=== PATIENT | male | born 1950 | race Caucasian/White ===

== ENCOUNTER 2023-09-30 09:10 | Emergency (ER) | payer MEDICARE, BC ==
[2023-09-30 09:19] LABS: BASOPHILS ABSOLUTE AUTO 0.03 K/uL (0.00-0.20); BASOPHILS PERCENT AUTO 0.4 % (0.0-2.0); EOSINOPHILS ABSOLUTE AUTO 0.13 K/uL (0.00-0.50); EOSINOPHILS PERCENT AUTO 1.6 % (0.0-5.0); HEMATOCRIT 47.4 % (39.0-49.0); HEMOGLOBIN 15.9 g/dL (13.1-16.8); LYMPHOCYTES PERCENT AUTO 27.7 % (10.0-50.0); MEAN CORPUSCULAR HEMOGLOBIN 29.6 pg (28.2-33.3); MEAN CORPUSCULAR HGB CONC 33.5 g/dL (31.7-36.0); MEAN CORPUSCULAR VOLUME 88.3 fL (84.0-98.0); MONOCYTES ABSOLUTE AUTO 0.88 K/uL (0.00-1.00); MONOCYTES PERCENT AUTO 10.6 % (2.0-14.0); NEUTROPHILS ABSOLUTE AUTO 4.97 K/uL (1.40-7.00); NEUTROPHILS PERCENT AUTO 59.7 % (45.0-80.0); PLATELET COUNT,PLT 207 K/uL (150-350); RED BLOOD CELL COUNT 5.37 M/uL (4.33-5.41); RED CELL DISTRIBUTION WIDTH 13.8 % (11.2-14.1); WHITE BLOOD CELL COUNT,WBC 8.3 K/uL (4.0-10.2)
[2023-09-30] MEDS: Lidocaine 2% Viscous Solution 15 ML UD PO ONE (09:25)
[2023-09-30] MEDS: Aspirin 81 MG Tab.Chew PO ONE (09:26)
[2023-09-30] MEDS: Aluminum Hydroxide/Magnesium Hydroxide/Simethicone Susp 30 ML Cup PO ONE (09:27)
[2023-09-30] MEDS: Sodium Chloride 0.9% 10 ML Syringe FLUSH PRN (09:27)
[2023-09-30] MEDS: Ondansetron 4 MG/2 ML SDV IVPUSH ONE (09:27)
[2023-09-30] MEDS: Calcium Carbonate 500 MG Tab.Chew PO ONE (09:36)
[2023-09-30 09:49] LABS: ALANINE AMINOTRANSFERASE,ALT 34 U/L (12-78); ALBUMIN 3.8 g/dL (3.4-5.0); ALKALINE PHOSPHATASE 109 IU/L (46-116); ASPARTATE AMNIOTRANSFERASE,AST 49 U/L (15-37); BILIRUBIN TOTAL 0.8 mg/dL (0.2-1.0); BLOOD UREA NITROGEN,BUN 30 mg/dL (7-18); CALCIUM 8.9 mg/dL (8.5-10.1); CHLORIDE,CL 103 mmol/L (98-107); ESTIMATED GFR 79 mL/min (>=60); GLUCOSE RANDOM 191 mg/dL (70-99); MAGNESIUM 1.9 mg/dL (1.8-2.4); POTASSIUM,K 3.7 mmol/L (3.5-5.1); PRO B-TYPE NATRIUR PEPT,BNPPRO 439 pg/mL (0-125); PROTEIN TOTAL,TP 7.8 g/dL (6.4-8.2); SODIUM,NA 141 mmol/L (136-145)
[2023-09-30] MEDS: Morphine 2 MG/ML SYRINGE IVPUSH ONE (10:19)
[2023-09-30] MEDS: Heparin Sodium 5,000 Units/ML Vial IVPUSH ONE ×2 (10:26→10:46)
[2023-09-30] MEDS: Pantoprazole 40 MG Vial IVPUSH ONE (10:30)
[2023-09-30] MEDS: Metoprolol Tartrate 25 MG Tab PO ONE (10:31)
[2023-09-30] MEDS: Sodium Chloride 0.9% 1,000 ML IV ONE (10:33)
[2023-09-30] MEDS: Nitroglycerin 0.4 MG Tab.SL SL ONE (10:34)
[2023-09-30] MEDS: Sodium Chloride 0.9% 250 ML IV SCH (10:36)
[2023-09-30] MEDS: Heparin Sodium/0.45% NaCl 500 ML IV SCH (10:38)
[2023-09-30] MEDS: Iopamidol 755 Mg/ML 100 ML Bottle IVPUSH STA (10:44)
[2023-09-30 11:59] LABS: CORONAVIRUS COVID-19 NAA NEGATIVE (NEGATIVE); INFLUENZA A NAA NEGATIVE (NEGATIVE); INFLUENZA B NAA NEGATIVE (NEGATIVE); RESPIRATORY SYNCYTIAL VIR NAA NEGATIVE (NEGATIVE)
[2023-09-30] MEDS: Nitroglycerin 2% Oint 1 GM UD Packet TOP ONE (12:16)
[2023-09-30] MEDS ORDERED: Naloxone 0.4 MG/ML SDV IVPUSH PRN (12:41)
[2023-09-30 12:47] LABS: PTT,PARTIAL THROMBOPLSTIN TIME 25.9 SEC (23.6-29.8)
[2023-09-30 12:56] LABS: INR 1.1 (0.9-1.1); PROTHROMBIN TIME 10.9 SEC (9.0-11.1)
[2023-09-30] MEDS: Sodium Chloride 0.9% 1,000 ML IV SCH (13:01)
[2023-09-30] MEDS: Ticagrelor 90 MG Tab PO ONE (13:05)
[2023-09-30] MEDS: Morphine 4 MG/ML Syringe IVPUSH ONE (13:08)
[2023-09-30 18:27] VITALS: BP 163/76; PULSE 58
== END 2023-09-30 13:31 ==
LOC: LL.ED 09:10
DX: I24.9 Acute ischemic heart disease, unspecified (principal); K21.9 Gastro-esophageal reflux disease without esophagitis; Z88.8 Allergy status to other drugs, medicaments and biological substances; Z79.899 Other long term (current) drug therapy
CPT/HCPCS: 0241U; 36415; 71275; 74022; 74177; 80053; 83605; 83690; 83735; 83880; 84484; 85025; 85379; 85610; 85730; 93005; 93010; 96365; 96366; 96375; 96376; 99284; 99285-25; A9270-GY; C9113; J1644; J2270; J2405; J3490; J7030; J7050; Q9967